=== PATIENT | male | born 1955 ===

== ENCOUNTER 2018-12-05 11:31 | Outpatient (CLI) | payer OTHER ==
[~2018-12-05] VITALS: Ht 175.3 cm; Wt 81.6 kg
[~2018-12-05 11:31] MED LIST: COZAAR25 MG; NEURONTIN300 MG; PREVACID30 MG PO
== END 2018-12-05 11:45 | disposition home or self-care (01) ==
LOC: OFIC 805 11:31
DX: H93.8X9 Other specified disorders of ear, unspecified ear (principal); R07.0 Pain in throat; R22.1 Localized swelling, mass and lump, neck; H92.09 Otalgia, unspecified ear